=== PATIENT | male | born 1955 | race Caucasian/White ===

== ENCOUNTER 2018-01-30 21:13 | Emergency (ER) | payer SELFPAY ==
--- NOTE | 2018-01-30 21:36 | ER Report ---
History and Physical Time Seen By MD: 21:18 HPI/ROS CHIEF COMPLAINT: Cardiac arrest HISTORY OF PRESENT ILLNESS: 65-year-old male brought in by EMS. Patient is traveling through [place]. Per report of his . He is DO NOT RESUSCITATE. Patient checked into the hotel. Apparently had some sudden shortness of breath. He collapsed in the bathtub. CPR was initiated by initial responders who placed an AED on him with no shockable rhythm and CPR was initiated at 2035. EMS arrived on scene at approximately 2046. They established intubation interosseous and monitor showed a rhythm of atrial fibrillation for which she was shocked with 200 J into asystole. EMS proceeded to continue resuscitative efforts with 5 rounds of epi, 2 D50 ampules administered. Arrival to the ER at 2112. Patient was in asystole with CPR in progress by yamil Mcallister. Patient's pupils were fixed and nonresponsive at 4-5 mm. Patient reported that he is a DO NOT RESUSCITATE. This was found out by EMS. While in route to the hospital. REVIEW OF SYSTEMS: Unobtainable secondary to cardiac arrest Additional history after patient obtained from patient's . Patient with a known blood disorder,? Leukemia, type II diabetes on metformin, congestive heart failure, and transfusions and had low platelets Patient's friend Fabricio Avilez [phone] . Patient's Jd Luna Allergies: Coded Allergies: UNABLE TO OBTAIN (Unverified , 01/30/18) CODE BLUE- PT FROM OUT OF STATE, UNABLE TO CONTACT FAMILY Home Meds Reported Medications Metformin Hcl (METFORMIN HCL) 500 Mg Tablet, 1 TAB PO BID, TAB 01/30/18 [Amicar] No Conflict Check, 1000 MG PO TID 01/30/18 Atorvastatin Calcium (LIPITOR) 40 Mg Tablet, 1 TAB PO QDAY, TAB 01/30/18 Candesartan Cilexetil (CANDESARTAN CILEXETIL) 32 Mg Tablet, 1 TAB PO QDAY 01/30/18 Tramadol Hcl (TRAMADOL HCL) 50 Mg Tablet, 50 MG PO BID, TAB 01/30/18 Hydralazine Hcl (HYDRALAZINE HCL) 10 Mg Tablet, 10 MG PO QID, TAB 01/30/18 Felodipine (FELODIPINE ER) 10 Mg Tab.er.24h, 10 MG PO QDAY 8/20/18 Furosemide (FUROSEMIDE) 20 Mg Tablet, 1-2 TAB PO QDAY, TAB 01/30/18 Past Medical/Surgical History The above data obtained after patient Reviewed Nurses Notes: Yes Old Medical Records Reviewed: Yes Constitutional Vital Sign - Last 24 Hours 01/30/18 21:55 O2 Flow Rate 15.0 Physical Exam General Appearance: Patient is comatose being ventilated. CPR in progress by a Esvin Eyes: Pupils are fixed and nonresponsive at 4-5 mm Respiratory: Breath sounds are equal bilaterally. There is blood noted in the ET tube Cardiac: Heart sounds are absent. [ ] DIFFERENTIAL DIAGNOSIS: After history and physical exam differential diagnosis was considered for cardiac arrest including myocardial infarction, arrhythmia, pulmonary embolus and severe electrolyte abnormality Medical Decision Making ED Course/Re-evaluation ED Course Patient was brought in by EMS in full resuscitative mode with a Esvin and diagnostic cardiac sonographer in place. They had established interosseous IVs to admit Mr. sanon. EMS reports on scene time of approximately 30 minutes with no ROSC. They did have V. fib on the arrival of EMS. He was shocked once. He received 5 rounds of epinephrine with no sustainable rhythm or improvement of his condition. He also received 2 A of dextrose 50% case he was hypoglycemic. He also received Narcan. Arrival, patient remains in asystole with unstable vital signs. His estimated down time is nearly 45 minutes. Patient reportedly DO NOT RESUSCITATE by his . This was just learned by EMS in route to the hospital. At this time, I do not think patient is viable. He was pronounced at CPR was discontinued. His rhythm was documented onto monitors to be asystole. Decision to Disposition Date: Jan 30, 2018 Decision to Disposition Time: 21:16 Critical Care Time I spent a total of 10 minutes of critical care time in obtaining history, performing a physical exam, bedside monitoring of interventions, collecting and interpreting tests and discussion with consultants but not including time spent performing procedures. Depart Departure Latest Vital Signs Vital Signs Date Time Temp Pulse Resp B/P (MAP) Pulse Ox O2 Delivery O2 Flow Rate FiO2 01/30/18 21:55 15.0 Impression: Primary Impression: Cardiac arrest Additional Impressions: History of lymphoma Congestive heart failure Type II diabetes mellitus Condition: Disposition: Problem Qualifiers Additional Impressions: Congestive heart failure Heart failure type: unspecified Heart failure chronicity: unspecified Qualified Codes: I50.9 - Heart failure, unspecified Type II diabetes mellitus Diabetes mellitus custodial insulin use: unspecified exterminator termite insulin use status Diabetes mellitus complication status: without complication Qualified Codes: E11.9 - Type 2 diabetes mellitus without complications MARINA ALCANTARA DO Jan 30, 2018 21:36
[2018-01-30] MEDS ORDERED: FURO-45 PO (21:47)
[2018-01-30] MEDS ORDERED: FELO10TA34 PO (21:48)
[2018-01-30] MEDS ORDERED: HYDR10TA20 PO (21:48)
[2018-01-30] MEDS ORDERED: TRAM-420 PO (21:49)
[2018-01-30] MEDS ORDERED: CAND32TA PO (21:50)
[2018-01-30] MEDS ORDERED: ATOR40TA24 PO (21:50)
[2018-01-30] MEDS ORDERED: AMICAR PO (21:53)
[2018-01-30] MEDS ORDERED: METF-411 PO (21:54)
== END 2018-01-30 23:00 | disposition expired ==
LOC: ER 22:54 → EDBD 22:54 → ER 23:00
DX: I46.9 Cardiac arrest, cause unspecified (principal); I50.9 Heart failure, unspecified; E11.9 Type 2 diabetes mellitus without complications
CPT/HCPCS: 99285

== ENCOUNTER → 2018-01-30 | Outpatient (CLI) | payer SELFPAY ==
[~2018-01-30] MED LIST: AMICAR PO; ATOR40TA24 PO; CAND32TA PO; FELO10TA34 PO; FURO-45 PO; HYDR10TA20 PO; METF-411 PO; TRAM-420 PO
== END ==
LOC: AMB 20:40
PROVIDERS: ATTEND Nurse Practitioner
DX: I46.9 Cardiac arrest, cause unspecified (principal)
CPT/HCPCS: A0425; A0433